=== PATIENT | male | born 1940 | race Caucasian/White ===

== ENCOUNTER 2023-10-09 12:12 | Emergency (ER) | payer MEDICARE, OTHER ==
[2023-10-09 13:28] LABS: BASO % 0.3 % (0.0-1.0); EOS # 0.2 10^3/uL (0.0-0.5); HEMATOCRIT 36.6 % (42.0-52.0); HEMOGLOBIN 11.6 g/dl (13.5-17.5); LYMPH # 1.1 10^3/uL (1.5-5.0); LYMPH % 9.4 % (24.0-44.0); MEAN CORPUSCULAR HEMOGLOBIN 27.6 pg (27.0-33.0); MEAN CORPUSCULAR HGB CONC 31.7 g/dl (32.0-36.5); MEAN CORPUSCULAR VOLUME 87.1 fl (80.0-96.0); MONO # 0.9 10^3/uL (0.0-0.8); MONO % 7.8 % (2.0-8.0); NEUTROPHILS # 9.4 10^3/uL (1.5-8.5); NEUTROPHILS % 79.8 % (36.0-66.0); PLATELET COUNT, AUTOMATED 417 10^3/uL (150-450); WHITE BLOOD COUNT 11.7 10^3/uL (4.0-10.0)
[2023-10-09 13:42] LABS: INR 1.09; PARTIAL THROMBOPLASTIN TIME 28.2 SECONDS (24.8-34.2); PROTHROMBIN TIME 13.7 SECONDS (12.5-14.5)
[2023-10-09 13:54] LABS: CK-MB VALUE MASS < 1.0 NG/ML (<3.6); LIPASE 46 U/L (12-53)
[2023-10-09 13:56] LABS: ALKALINE PHOSPHATASE 72 U/L (46-116); ALT/SGPT 33 U/L (7.0-40); AST/SGOT 19 U/L (<34); BILIRUBIN,DIRECT 0.1 MG/DL (<0.4); BILIRUBIN,TOTAL 0.3 MG/DL (0.3-1.2); BLOOD UREA NITROGEN 19 MG/DL (9-23); CALCIUM LEVEL 9.2 MG/DL (8.3-10.6); CARBON DIOXIDE LEVEL 21 MMOL/L (20-31); CHLORIDE LEVEL 112 MMOL/L (98-107); CPK CREATINE PHOSPHOKINASE 25 U/L (46-171); CREATININE FOR GFR 1.89 MG/DL (0.70-1.30); GLOMERULAR FILTRATION RATE 36.4 (>35); GLUCOSE, FASTING 112 MG/DL (74-106); POTASSIUM SERUM 4.6 MMOL/L (3.5-5.1); SODIUM LEVEL 141 MMOL/L (136-145); TOTAL PROTEIN 5.8 G/DL (5.7-8.2)
[2023-10-09 14:57] LABS: CK-MB VALUE MASS < 1.0 NG/ML (<3.6)
[2023-10-09 14:59] LABS: CPK CREATINE PHOSPHOKINASE 21 U/L (46-171); MB/CK RELATIVE INDEX 4.76 (< OR =4)
[2023-10-09] MEDS: NS 1,000 ML IV ONE (15:35)
[2023-10-09] MEDS ORDERED: UNRESOLVED CLARIFICATION ENTRY XX STA (15:42)
[2023-10-09 16:13] VITALS: BP 169/95; TEMP 99.2; O2SAT 97
== END 2023-10-09 16:25 | disposition home or self-care (01) ==
LOC: M ED 12:12
DX: K63.9 Disease of intestine, unspecified (principal); N17.9 Acute kidney failure, unspecified; I10 Essential (primary) hypertension; E78.5 Hyperlipidemia, unspecified

== ENCOUNTER 2024-01-25 17:22 | Inpatient (IN) | payer OTHER ==
[~2024-01-25] VITALS: Ht 172.7 cm; Wt 74.6 kg
[2024-01-25] MEDS: ACETAMINOPHEN 325 MG TAB PO ONE (18:23)
[2024-01-25] MEDS: NS 1,000 ML IV ONE ×2 (18:24→21:33)
[2024-01-25 18:30] LABS: HEMATOCRIT 31.2 % (42.0-52.0); HEMOGLOBIN 10.2 g/dl (13.5-17.5); MEAN CORPUSCULAR HEMOGLOBIN 27.3 pg (27.0-33.0); MEAN CORPUSCULAR HGB CONC 32.7 g/dl (32.0-36.5); MEAN CORPUSCULAR VOLUME 83.4 fl (80.0-96.0); PLATELET COUNT, AUTOMATED 242 10^3/uL (150-450); RED BLOOD COUNT 3.74 10^6/uL (4.30-6.10)
[2024-01-25 18:45] LABS: INR 1.26; PROTHROMBIN TIME 15.4 SECONDS (12.5-14.5)
[2024-01-25 18:49] LABS: APPEARANCE, URINE CLOUDY (CLEAR); BACTERIA, URINE AUTO 1+ (NEGATIVE); BILIRUBIN, URINE AUTO NEGATIVE (NEGATIVE); BLOOD, URINE BLOOD 2+ (NEGATIVE); COLOR, URINE AMBER (YELLOW); GLUCOSE, URINE (UA) AUTO NEGATIVE (NEGATIVE); KETONE, URINE AUTO NEGATIVE (NEGATIVE); LEUKOCYTE ESTERASE, URINE AUTO 3+ (NEGATIVE); MUCUS, URINE SMALL (NEGATIVE); NITRITE, URINE AUTO NEGATIVE (NEGATIVE); PROTEIN, URINE AUTO 3+ mg/dL (NEGATIVE); RBC, URINE AUTO 26 /HPF (0-3); SPECIFIC GRAVITY URINE AUTO 1.015 (1.002-1.035); SQUAMOUS EPITHELIAL CELL UR AU 1 /HPF (0-6); UROBILINOGEN, URINE AUTO 0.2 mg/dL (0.0-2.0); WBC, URINE AUTO TNTC /HPF (0-3)
[2024-01-25 18:59] LABS: AMYLASE 73 U/L (30-118)
[2024-01-25 19:12] LABS: LYMPHOCYTES 1 % (16-44); MONOCYTES 5 % (0-5); NEUTROPHILS 88 % (28-66)
[2024-01-25 19:13] LABS: BURR CELLS 1+; OVALOCYTES 1+; PLATELET ESTIMATE NORMAL (NORMAL); POIKILOCYTOSIS 1+
[2024-01-25] MEDS: cefTRIAXone SOD 2 GM in D5W MINI-BAG PLUS 50 ML IV ONE (19:13)
[2024-01-25 19:14] LABS: ANISOCYTOSIS 1+; MICROCYTOSIS 1+
[2024-01-25 19:36] LABS: ALBUMIN 3.2 G/DL (3.2-5.2); ALKALINE PHOSPHATASE 97 U/L (46-116); ALT/SGPT 11 U/L (7.0-40); AST/SGOT 13 U/L (<34); BILIRUBIN,DIRECT 0.2 MG/DL (<0.4); BILIRUBIN,TOTAL 0.5 MG/DL (0.3-1.2); BLOOD UREA NITROGEN 56 MG/DL (9-23); C REACTIVE PROTEIN QUANTITATIV > 30.40 MG/DL (<1.0); CALCIUM LEVEL 8.1 MG/DL (8.3-10.6); CARBON DIOXIDE LEVEL 20 MMOL/L (20-31); CHLORIDE LEVEL 106 MMOL/L (98-107); CREATININE FOR GFR 4.82 MG/DL (0.70-1.30); GLOMERULAR FILTRATION RATE 12.4 (>35); GLUCOSE, FASTING 105 MG/DL (74-106); POTASSIUM SERUM 4.4 MMOL/L (3.5-5.1); SODIUM LEVEL 136 MMOL/L (136-145); TOTAL PROTEIN 6.4 G/DL (5.7-8.2)
[2024-01-25 19:47] LABS: PROCALCITONIN >50.00 ng/ml
[2024-01-25] MEDS: NS 1,000 ML IV SCH ×2 (20:29→22:24)
[2024-01-25] MEDS ORDERED: TAMS1CAP17 PO (20:38)
[2024-01-25] MEDS ORDERED: LOSA25TA13 PO (20:38)
[2024-01-25] MEDS ORDERED: FINA5TAB2 PO (20:38)
[2024-01-25] MEDS ORDERED: MIRT1TAB PO (20:38)
[2024-01-25] MEDS ORDERED: THERTAB52 PO (20:38)
[2024-01-25] MEDS ORDERED: NIFE1TAB52 PO (20:38)
[2024-01-25] MEDS ORDERED: HOME MED LIST COMPLETE! XX SCH (20:40)
[2024-01-25] MEDS: TAMSULOSIN 0.4 MG CAP PO SCH (21:47)
[2024-01-25] MEDS: FINASTERIDE 5MG TAB PO SCH (21:47)
[2024-01-25] MEDS: PIPERACILLIN/TAZOBACTAM SOD 3.375 GM in D5W MINI-BAG PLUS 50 ML IV ONE (21:47)
[2024-01-25] MEDS: MIRTAZAPINE 7.5MG PER 1/2 TABLET PO SCH (21:48)
[2024-01-26] MEDS ORDERED: HEPARIN SOD (PORCINE) 5000UNITS/ML 1ML VIAL/SYRINGE SC SCH (06:00)
[2024-01-26] MEDS: PIPERACILLIN/TAZOBACTAM SOD 3.375 GM in D5W MINI-BAG PLUS 50 ML IV SCH (06:16)
[2024-01-26 06:38] LABS: HEMATOCRIT 25.9 % (42.0-52.0); HEMOGLOBIN 8.5 g/dl (13.5-17.5); MEAN CORPUSCULAR HEMOGLOBIN 27.3 pg (27.0-33.0); MEAN CORPUSCULAR HGB CONC 32.8 g/dl (32.0-36.5); MEAN CORPUSCULAR VOLUME 83.3 fl (80.0-96.0); PLATELET COUNT, AUTOMATED 184 10^3/uL (150-450); RED BLOOD COUNT 3.11 10^6/uL (4.30-6.10)
[2024-01-26 07:25] LABS: ALBUMIN 2.5 G/DL (3.2-5.2); ALKALINE PHOSPHATASE 78 U/L (46-116); ALT/SGPT < 9 U/L (7.0-40); AST/SGOT 9 U/L (<34); BILIRUBIN,TOTAL 0.3 MG/DL (0.3-1.2); BLOOD UREA NITROGEN 58 MG/DL (9-23); CALCIUM LEVEL 7.3 MG/DL (8.3-10.6); CARBON DIOXIDE LEVEL 16 MMOL/L (20-31); CHLORIDE LEVEL 111 MMOL/L (98-107); CREATININE FOR GFR 4.45 MG/DL (0.70-1.30); GLOMERULAR FILTRATION RATE 13.6 (>35); GLUCOSE, FASTING 109 MG/DL (74-106); MAGNESIUM LEVEL 1.8 MG/DL (1.8-2.4); SODIUM LEVEL 138 MMOL/L (136-145); TOTAL PROTEIN 5.2 G/DL (5.7-8.2)
[2024-01-26 09:34] LABS: VENOUS BASE EXCESS -8.3 (-2.0-2.0); VENOUS HCO3 15.9 MMOL/L (23.0-27.0); VENOUS O2 SATURATION 97.8 % (60.0-80.0); VENOUS PARTIAL PRESSURE CO2 28.3 mmHg (38.0-50.0); VENOUS PH 7.368 UNITS (7.330-7.430); VENOUS STANDARD HCO3 17.7 MMOL/L; VENOUS TOTAL CO2 16.8 MMOL/L (24.0-28.0)
[2024-01-26] MEDS: SODIUM BICARBONATE 8.4% INJ 50ML SYRINGE IV STA (10:29)
[2024-01-26] MEDS ORDERED: GLUCOSE 4 GM CHEW PO PRN (11:10)
[2024-01-26] MEDS ORDERED: DEXTROSE 50% 50ML SYRINGE IV PRN (11:10)
[2024-01-26] MEDS ORDERED: GLUCAGON INJ 1MG VIAL SC PRN (11:10)
[2024-01-26] MEDS: INSULIN LISPRO (NovoLOG) PER UNIT SC SCH (11:42)
[2024-01-26] MEDS: ACETAMINOPHEN TAB 650MG DOSE (2X325MG) PO PRN (13:25)
[2024-01-26 13:39] LABS: CALCIUM LEVEL 7.9 MG/DL (8.3-10.6); CREATININE FOR GFR 4.3 MG/DL (0.70-1.30); GLOMERULAR FILTRATION RATE 14.1 (>35); POTASSIUM SERUM 4.5 MMOL/L (3.5-5.1)
[2024-01-26] MEDS: PIPERACILLIN/TAZOBACTAM SOD 4.5 GM in D5W MINI-BAG PLUS 50 ML IV SCH (14:18)
[2024-01-26 15:08] VITALS: BP 124/70; TEMP 100.1; O2SAT 95
[2024-01-26 20:08] VITALS: BP 150/77; TEMP 99; O2SAT 96
[2024-01-26] MEDS: HEPARIN SOD (PORCINE) 5000UNITS/ML 1ML VIAL/SYRINGE SQ SCH (20:18)
[2024-01-27] VITALS (11 sets, daily range): BP systolic 95–176; BP diastolic 58–90; TEMP 97.8–102.8; O2SAT 93–97
[2024-01-27 07:38] LABS: BASO % 0.2 % (0.0-1.0); EOS # 0.1 10^3/uL (0.0-0.5); EOS % 0.7 % (0.0-3.0); HEMATOCRIT 25.8 % (42.0-52.0); HEMOGLOBIN 8.1 g/dl (13.5-17.5); LYMPH # 0.6 10^3/uL (1.5-5.0); LYMPH % 4.1 % (24.0-44.0); MEAN CORPUSCULAR HEMOGLOBIN 26.6 pg (27.0-33.0); MEAN CORPUSCULAR HGB CONC 31.4 g/dl (32.0-36.5); MEAN CORPUSCULAR VOLUME 84.6 fl (80.0-96.0); MONO # 0.7 10^3/uL (0.0-0.8); MONO % 4.6 % (2.0-8.0); NEUTROPHILS # 13.8 10^3/uL (1.5-8.5); NEUTROPHILS % 89.8 % (36.0-66.0); PLATELET COUNT, AUTOMATED 165 10^3/uL (150-450); RED BLOOD COUNT 3.05 10^6/uL (4.30-6.10); WHITE BLOOD COUNT 15.4 10^3/uL (4.0-10.0)
[2024-01-27 08:12] LABS: ALBUMIN 2.2 G/DL (3.2-5.2); BLOOD UREA NITROGEN 58 MG/DL (9-23); CALCIUM LEVEL 7.9 MG/DL (8.3-10.6); CARBON DIOXIDE LEVEL 20 MMOL/L (20-31); CHLORIDE LEVEL 118 MMOL/L (98-107); CREATININE FOR GFR 4.19 MG/DL (0.70-1.30); GLOMERULAR FILTRATION RATE 14.5 (>35); GLUCOSE, FASTING 101 MG/DL (74-106); PHOSPHORUS LEVEL 3.9 MG/DL (2.4-5.1); POTASSIUM SERUM 4.7 MMOL/L (3.5-5.1); SODIUM LEVEL 145 MMOL/L (136-145)
[2024-01-27 12:35] LABS: HEMATOCRIT 27.2 % (42.0-52.0); HEMOGLOBIN 8.6 g/dl (13.5-17.5)
[2024-01-27 13:12] LABS: PROCALCITONIN >50.00 ng/ml
[2024-01-28] VITALS (7 sets, daily range): BP systolic 139–176; BP diastolic 72–104; TEMP 99.2–101.8; O2SAT 95–97
[2024-01-28 07:22] LABS: BASO % 0.2 % (0.0-1.0); EOS # 0.4 10^3/uL (0.0-0.5); EOS % 3.6 % (0.0-3.0); HEMATOCRIT 25.4 % (42.0-52.0); HEMOGLOBIN 7.9 g/dl (13.5-17.5); LYMPH # 0.8 10^3/uL (1.5-5.0); LYMPH % 7.9 % (24.0-44.0); MEAN CORPUSCULAR HEMOGLOBIN 26.6 pg (27.0-33.0); MEAN CORPUSCULAR HGB CONC 31.1 g/dl (32.0-36.5); MEAN CORPUSCULAR VOLUME 85.5 fl (80.0-96.0); MONO % 10.1 % (2.0-8.0); NEUTROPHILS # 7.7 10^3/uL (1.5-8.5); NEUTROPHILS % 77.6 % (36.0-66.0); PLATELET COUNT, AUTOMATED 183 10^3/uL (150-450); RED BLOOD COUNT 2.97 10^6/uL (4.30-6.10); WHITE BLOOD COUNT 9.9 10^3/uL (4.0-10.0)
[2024-01-28 07:49] LABS: ALBUMIN 2.1 G/DL (3.2-5.2); CREATININE FOR GFR 3.87 MG/DL (0.70-1.30); GLOMERULAR FILTRATION RATE 15.9 (>35); PHOSPHORUS LEVEL 3.4 MG/DL (2.4-5.1); POTASSIUM SERUM 4.1 MMOL/L (3.5-5.1)
[2024-01-28 09:54] LABS: PERCENT SATURATION 3.8 % (19.7-50.0)
[2024-01-28] MEDS: SODIUM BICARBONATE 325 MG TAB PO SCH (11:02)
[2024-01-28 12:50] LABS: BASO % 0.3 % (0.0-1.0); EOS # 0.3 10^3/uL (0.0-0.5); EOS % 2.8 % (0.0-3.0); HEMATOCRIT 29.4 % (42.0-52.0); HEMOGLOBIN 9.1 g/dl (13.5-17.5); LYMPH # 0.7 10^3/uL (1.5-5.0); LYMPH % 6.9 % (24.0-44.0); MEAN CORPUSCULAR HEMOGLOBIN 26.3 pg (27.0-33.0); MONO # 0.7 10^3/uL (0.0-0.8); MONO % 7.3 % (2.0-8.0); NEUTROPHILS # 8.3 10^3/uL (1.5-8.5); NEUTROPHILS % 82.2 % (36.0-66.0); PLATELET COUNT, AUTOMATED 214 10^3/uL (150-450); RED BLOOD COUNT 3.46 10^6/uL (4.30-6.10); WHITE BLOOD COUNT 10.1 10^3/uL (4.0-10.0)
[2024-01-28] MEDS: NIFEdipine 30MG XL TAB PO SCH (17:52)
[2024-01-28] MEDS: ACETAMINOPHEN *IV* 1,000 MG in IV 1 EA IV ONE (17:53)
[2024-01-28] MEDS: FERROUS SULFATE 325MG TAB PO SCH (20:48)
[2024-01-29] VITALS (7 sets, daily range): BP systolic 126–144; BP diastolic 74–88; TEMP 96.7–100.5; O2SAT 92–94
[2024-01-29 06:32] LABS: BASO % 0.4 % (0.0-1.0); EOS # 0.3 10^3/uL (0.0-0.5); EOS % 3.4 % (0.0-3.0); HEMATOCRIT 24.9 % (42.0-52.0); HEMOGLOBIN 7.8 g/dl (13.5-17.5); LYMPH # 0.7 10^3/uL (1.5-5.0); LYMPH % 8.8 % (24.0-44.0); MEAN CORPUSCULAR HEMOGLOBIN 26.3 pg (27.0-33.0); MEAN CORPUSCULAR HGB CONC 31.3 g/dl (32.0-36.5); MEAN CORPUSCULAR VOLUME 83.8 fl (80.0-96.0); MONO # 0.9 10^3/uL (0.0-0.8); MONO % 10.6 % (2.0-8.0); NEUTROPHILS # 6.4 10^3/uL (1.5-8.5); NEUTROPHILS % 76.1 % (36.0-66.0); PLATELET COUNT, AUTOMATED 205 10^3/uL (150-450); RED BLOOD COUNT 2.97 10^6/uL (4.30-6.10); WHITE BLOOD COUNT 8.3 10^3/uL (4.0-10.0)
[2024-01-29 06:55] LABS: ALBUMIN 2.1 G/DL (3.2-5.2); CALCIUM LEVEL 7.9 MG/DL (8.3-10.6); CREATININE FOR GFR 3.53 MG/DL (0.70-1.30); GLOMERULAR FILTRATION RATE 17.7 (>35); PHOSPHORUS LEVEL 2.8 MG/DL (2.4-5.1); POTASSIUM SERUM 3.9 MMOL/L (3.5-5.1)
[2024-01-29 10:57] LABS: C REACTIVE PROTEIN QUANTITATIV 12.4 MG/DL (<1.0)
[2024-01-29 11:11] LABS: PROCALCITONIN 25.3 ng/ml
[2024-01-29 12:16] LABS: BASO % 0.2 % (0.0-1.0); EOS # 0.2 10^3/uL (0.0-0.5); HEMATOCRIT 26.2 % (42.0-52.0); HEMOGLOBIN 8.2 g/dl (13.5-17.5); LYMPH # 0.8 10^3/uL (1.5-5.0); LYMPH % 8.2 % (24.0-44.0); MEAN CORPUSCULAR HGB CONC 31.3 g/dl (32.0-36.5); MEAN CORPUSCULAR VOLUME 83.2 fl (80.0-96.0); MONO # 0.9 10^3/uL (0.0-0.8); NEUTROPHILS # 7.2 10^3/uL (1.5-8.5); NEUTROPHILS % 78.7 % (36.0-66.0); PLATELET COUNT, AUTOMATED 226 10^3/uL (150-450); RED BLOOD COUNT 3.15 10^6/uL (4.30-6.10); WHITE BLOOD COUNT 9.2 10^3/uL (4.0-10.0)
[2024-01-29] MEDS: LACTOBACILLUS ACIDOPHILUS CAP (BACID) PO SCH (12:53)
[2024-01-29] MEDS: CALAMINE LOTION 177 ML BTL TOP SCH (12:54)
[2024-01-30 04:08] VITALS: BP 122/73; TEMP 98.7; O2SAT 93
[2024-01-30 06:45] LABS: BASO % 0.2 % (0.0-1.0); EOS # 0.4 10^3/uL (0.0-0.5); EOS % 3.6 % (0.0-3.0); HEMATOCRIT 24.3 % (42.0-52.0); HEMOGLOBIN 7.6 g/dl (13.5-17.5); LYMPH # 0.9 10^3/uL (1.5-5.0); LYMPH % 9.5 % (24.0-44.0); MEAN CORPUSCULAR HEMOGLOBIN 26.4 pg (27.0-33.0); MEAN CORPUSCULAR HGB CONC 31.3 g/dl (32.0-36.5); MEAN CORPUSCULAR VOLUME 84.4 fl (80.0-96.0); MONO # 1.1 10^3/uL (0.0-0.8); MONO % 10.9 % (2.0-8.0); NEUTROPHILS # 7.4 10^3/uL (1.5-8.5); NEUTROPHILS % 74.9 % (36.0-66.0); PLATELET COUNT, AUTOMATED 255 10^3/uL (150-450); RED BLOOD COUNT 2.88 10^6/uL (4.30-6.10); WHITE BLOOD COUNT 9.9 10^3/uL (4.0-10.0)
[2024-01-30 07:12] LABS: ALBUMIN 2.1 G/DL (3.2-5.2); CALCIUM LEVEL 7.6 MG/DL (8.3-10.6); CREATININE FOR GFR 3.34 MG/DL (0.70-1.30); GLOMERULAR FILTRATION RATE 18.9 (>35); PHOSPHORUS LEVEL 2.8 MG/DL (2.4-5.1); POTASSIUM SERUM 4.1 MMOL/L (3.5-5.1)
[2024-01-30 07:23] VITALS: BP 145/85; TEMP 99.9; O2SAT 92
[2024-01-30 09:02] VITALS: BP 125/67
[2024-01-30] MEDS ORDERED: LevoFLOXacin 750 MG TABLET PO ONE (09:45)
[2024-01-30 09:58] LABS: HEMATOCRIT 24.9 % (42.0-52.0); HEMOGLOBIN 7.8 g/dl (13.5-17.5)
[2024-01-30] MEDS ORDERED: RISATAB3 PO (10:55)
[2024-01-30] MEDS ORDERED: FERR1TAB8 PO (10:55)
[2024-01-30] MEDS ORDERED: SODI325T9 PO (10:55)
[2024-01-30] MEDS ORDERED: LEVO1TAB39 PO (10:55)
[2024-01-30] MEDS: LevoFLOXacin 500 MG TABLET PO SCH (11:11)
[2024-01-31] MEDS ORDERED: LevoFLOXacin 500 MG TABLET PO SCH (09:00)
== END 2024-01-30 12:24 | disposition home or self-care (01) | DRG 698 ==
LOC: M ED 17:22 → M ED INP 21:20 → M PCU 01-26 14:56
PROVIDERS: ADMIT Preventive Medicine Undersea and Hyperbaric Medicine; ATTEND Preventive Medicine Undersea and Hyperbaric Medicine
DX: T83.511A Infection and inflammatory reaction due to indwelling urethral catheter, initial encounter (principal); A41.50 Gram-negative sepsis, unspecified; R65.20 Severe sepsis without septic shock; N13.30 Unspecified hydronephrosis; N17.9 Acute kidney failure, unspecified; E87.20 Acidosis, unspecified; K92.2 Gastrointestinal hemorrhage, unspecified; F03.90 Unspecified dementia, unspecified severity, without behavioral disturbance, psychotic disturbance, mood disturbance, and anxiety; N18.32 Chronic kidney disease, stage 3b; D64.9 Anemia, unspecified; N39.0 Urinary tract infection, site not specified; N21.0 Calculus in bladder; I49.5 Sick sinus syndrome; Z66 Do not resuscitate; N40.1 Benign prostatic hyperplasia with lower urinary tract symptoms; I12.9 Hypertensive chronic kidney disease with stage 1 through stage 4 chronic kidney disease, or unspecified chronic kidney disease; Z95.0 Presence of cardiac pacemaker; Z79.899 Other long term (current) drug therapy; D37.4 Neoplasm of uncertain behavior of colon

== ENCOUNTER → 2024-01-25 | Outpatient (REF) | payer OTHER ==
[~2024-01-25] MED LIST: FINA5TAB2 PO; LOSA25TA13 PO; MIRT1TAB PO; NIFE1TAB52 PO; TAMS1CAP17 PO; THERTAB52 PO
[2024-01-26 14:52] LABS: LYMPHOCYTES 3 % (16-44); MONOCYTES 2 % (0-5); NEUTROPHILS 74 % (28-66)
[2024-01-26 14:55] LABS: BURR CELLS 2+; PLATELET ESTIMATE NORMAL (NORMAL)
== END ==
LOC: M LAB REF 16:30
PROVIDERS: ATTEND Nurse Practitioner Family
DX: A41.9 Sepsis, unspecified organism (principal); D72.829 Elevated white blood cell count, unspecified

== ENCOUNTER → 2024-02-07 | Outpatient (REF) | payer OTHER ==
[~2024-02-07] MED LIST changes: +FERR1TAB8 PO; +LEVO1TAB39 PO; +RISATAB3 PO; +SODI325T9 PO
[2024-02-07 19:17] LABS: PERCENT SATURATION 4.8 % (19.7-50.0)
[2024-02-07 19:19] LABS: FERRITIN 74.2 NG/ML (10.5-307.3)
== END ==
LOC: M LAB REF 16:26
PROVIDERS: ATTEND Nurse Practitioner Family
DX: D64.9 Anemia, unspecified (principal)

== ENCOUNTER → 2024-02-17 | Outpatient (CLI) | payer OTHER | LOC: M WUC 14:22 | PROVIDERS: ATTEND Nurse Practitioner Family | DX: R06.02 Shortness of breath (principal) ==

== ENCOUNTER → 2024-05-23 | Outpatient (REF) | payer OTHER ==
[2024-05-23 17:35] LABS: PERCENT SATURATION 10.2 % (19.7-50.0)
[2024-05-23 17:39] LABS: FERRITIN 21.9 NG/ML (10.5-307.3)
== END ==
LOC: M LAB REF 16:20
PROVIDERS: ATTEND Nurse Practitioner Family
DX: D72.829 Elevated white blood cell count, unspecified (principal)

== ENCOUNTER → 2024-11-13 | Outpatient (REF) | payer MEDICARE, OTHER ==
[2024-11-13 19:05] LABS: IRON (FE) 21.0 UG/DL (65-175); PERCENT SATURATION 6.9 % (19.7-50.0)
== END ==
LOC: M LAB REF 17:21
PROVIDERS: ATTEND Physician Assistant Medical
DX: N39.0 Urinary tract infection, site not specified (principal); D50.9 Iron deficiency anemia, unspecified

== ENCOUNTER → 2024-11-23 | Outpatient (REF) | payer MEDICARE ==
[2024-11-23 17:53] LABS: APPEARANCE, URINE CLEAR (CLEAR); BACTERIA, URINE AUTO 1+ (NEGATIVE); BILIRUBIN, URINE AUTO NEGATIVE (NEGATIVE); BLOOD, URINE BLOOD 1+ (NEGATIVE); GLUCOSE, URINE (UA) AUTO NEGATIVE (NEGATIVE); KETONE, URINE AUTO NEGATIVE (NEGATIVE); LEUKOCYTE ESTERASE, URINE AUTO TRACE (NEGATIVE); MUCUS, URINE SMALL (NEGATIVE); NITRITE, URINE AUTO NEGATIVE (NEGATIVE); PROTEIN, URINE AUTO NEGATIVE (NEGATIVE); RBC, URINE AUTO 3 /HPF (0-3); SPECIFIC GRAVITY URINE AUTO 1.005 (1.002-1.035); SQUAMOUS EPITHELIAL CELL UR AU 0 /HPF (0-6); UROBILINOGEN, URINE AUTO 0.2 mg/dL (0.0-2.0); WBC, URINE AUTO 8 /HPF (0-3)
== END ==
LOC: M SFHCDERM 15:26
PROVIDERS: ATTEND Nurse Practitioner Family
DX: R33.9 Retention of urine, unspecified (principal)

== ENCOUNTER → 2024-11-23 | Outpatient (REF) | payer MEDICARE ==
[2024-11-23 18:40] LABS: IRON (FE) 34.0 UG/DL (65-175); PERCENT SATURATION 11.4 % (19.7-50.0)
== END ==
LOC: M LAB REF 17:34
PROVIDERS: ATTEND Nurse Practitioner Family
DX: D50.9 Iron deficiency anemia, unspecified (principal)

== ENCOUNTER → 2024-12-18 | Outpatient (REF) | payer MEDICARE | LOC: M LAB REF 17:10 | PROVIDERS: ATTEND Nurse Practitioner Adult Health | DX: N39.0 Urinary tract infection, site not specified (principal) ==

== ENCOUNTER 2024-12-21 14:53 | Inpatient (IN) | payer MEDICARE ==
[~2024-12-21] VITALS: Ht 171.4 cm; Wt 80.7 kg
[2024-12-21 17:35] LABS: BASO # 0.0 10^3/uL (0.0-0.2); BASO % 0.3 % (0.0-1.0); EOS # 0.2 10^3/uL (0.0-0.5); EOS % 1.7 % (0.0-3.0); LYMPH # 1.0 10^3/uL (1.5-5.0); LYMPH % 8.6 % (24.0-44.0); MONO # 1.2 10^3/uL (0.0-0.8); MONO % 11.0 % (2.0-8.0); NEUTROPHILS # 8.8 10^3/uL (1.5-8.5); NEUTROPHILS % 78.0 % (36.0-66.0); PLATELET COUNT, AUTOMATED 413 10^3/uL (150-450)
[2024-12-21 18:37] LABS: CALCIUM LEVEL 9.0 MG/DL (8.3-10.6); CARBON DIOXIDE LEVEL 19.0 MMOL/L (20-31); CHLORIDE LEVEL 109.0 MMOL/L (98-107); CREATININE FOR GFR 7.56 MG/DL (0.70-1.30); GLOMERULAR FILTRATION RATE 6.6 (>35); POTASSIUM SERUM 5.0 MMOL/L (3.5-5.1); SODIUM LEVEL 142.0 MMOL/L (136-145)
[2024-12-21] MEDS ORDERED: NS (Normal Saline) 0.9% 1,000 ML IV SCH (18:50)
[2024-12-21] MEDS: NS 500 ML IV ONE (19:10)
[2024-12-21 19:14] LABS: KETONE, URINE AUTO RFX NEGATIVE (NEGATIVE); MUCUS, URINE RFX SMALL (NEGATIVE); NITRITE, URINE AUTO RFX NEGATIVE (NEGATIVE); RBC, URINE AUTO RFX 38 /HPF (0-3); SQUAM EPITHELIAL CELL UR AURFX 0 /HPF (0-6)
[2024-12-21 19:18] LABS: LEUKOCYTE ESTERASE UR AUTO RFX 2+ (NEGATIVE); WBC, URINE AUTO RFX 80 /HPF (0-3)
[2024-12-21] MEDS ORDERED: LEVO1TAB39 PO (19:38)
[2024-12-21] MEDS ORDERED: HOME MED LIST COMPLETE! XX SCH (19:40)
[2024-12-21] MEDS ORDERED: LIDOCAINE 2% 100 MG/5 ML SDV (FOR ANES.) As Ordered ONE (20:41)
[2024-12-21] MEDS: ceFAZolin SOD 2 GM in DEXTROSE 5% (D5W) ADV/MINI-BAG 50 ML IV ONE (21:05)
[2024-12-21] MEDS ORDERED: LIDOCAINE 2% 5 ML JELLY UROJET As Ordered ONE (21:07)
[2024-12-21] MEDS ORDERED: ISOVUE-300 61% 100 ML VIAL As Ordered ONE (21:07)
[2024-12-21] MEDS ORDERED: ACETAMINOPHEN 1000MG/100ML IV BAG As Ordered ONE (21:47)
[2024-12-21] MEDS ORDERED: KETOROLAC 30 MG/ML 1 ML VIAL As Ordered ONE (21:47)
[2024-12-21] MEDS ORDERED: MORPHINE 2 MG/ML 1 ML VIAL IV PRN (22:05)
[2024-12-21] MEDS ORDERED: ONDANSETRON 4MG 2ML VIAL IV PRN (22:05)
[2024-12-21 22:47] VITALS: BP 168/94; TEMP 97.5; O2SAT 97
[2024-12-21] MEDS: NS (Normal Saline) 0.9% 1,000 ML IV SCH (23:29)
[2024-12-21 23:33] VITALS: BP 168/92; TEMP 97.9; O2SAT 96
[2024-12-22] VITALS (12 sets, daily range): BP systolic 114–178; BP diastolic 70–102; TEMP 97–100.7; O2SAT 90–99
[2024-12-22 05:53] LABS: PLATELET COUNT, AUTOMATED 296 10^3/uL (150-450)
[2024-12-22 06:03] LABS: ALT/SGPT < 9 U/L (7.0-40); AST/SGOT 9 U/L (<34); CALCIUM LEVEL 8.1 MG/DL (8.3-10.6); CARBON DIOXIDE LEVEL 19 MMOL/L (20-31); CHLORIDE LEVEL 110 MMOL/L (98-107); CREATININE FOR GFR 7.20 MG/DL (0.70-1.30); GLOMERULAR FILTRATION RATE 7.0 (>35); POTASSIUM SERUM 4.9 MMOL/L (3.5-5.1); SODIUM LEVEL 142 MMOL/L (136-145)
[2024-12-22] MEDS: amLODIPine 5 MG TAB PO SCH ×2 (08:47→20:47)
[2024-12-22] MEDS: cefTRIAXone SOD 1 GM in DEXTROSE 5% (D5W) ADV/MINI-BAG 50 ML IV SCH (10:37)
[2024-12-22 12:38] LABS: IRON (FE) 9 UG/DL (65-175); PERCENT SATURATION 4.0 % (19.7-50.0)
[2024-12-22] MEDS: SODIUM BICARBONATE 325 MG TAB PO SCH (13:47)
[2024-12-22] MEDS: ACETAMINOPHEN 325 MG TAB PO PRN (13:47)
[2024-12-22] MEDS: ACETAMINOPHEN *IV* 1,000 MG in IV 1 EA IV ONE (16:32)
[2024-12-22] MEDS: LevoFLOXacin IV 750 MG in IV 1 EA IV ONE (17:16)
[2024-12-22] MEDS: HEPARIN SOD 5000 UNITS/ML 1 ML VIAL/SYRINGE SQ SCH (20:46)
[2024-12-22] MEDS: MIRTAZAPINE 7.5 MG PER 1/2 TABLET PO SCH (20:46)
[2024-12-22] MEDS: FINASTERIDE 5 MG TAB PO SCH (20:47)
[2024-12-23 00:19] VITALS: BP 139/87; TEMP 100; O2SAT 98
[2024-12-23 04:16] VITALS: BP 147/88; TEMP 98.8; O2SAT 98
[2024-12-23 08:23] VITALS: BP 159/93; TEMP 97.8; O2SAT 98
[2024-12-23 08:30] LABS: BASO # 0.0 10^3/uL (0.0-0.2); BASO % 0.3 % (0.0-1.0); EOS # 0.0 10^3/uL (0.0-0.5); EOS % 0.6 % (0.0-3.0); LYMPH # 0.5 10^3/uL (1.5-5.0); LYMPH % 7.1 % (24.0-44.0); MONO # 0.6 10^3/uL (0.0-0.8); MONO % 9.9 % (2.0-8.0); NEUTROPHILS # 5.3 10^3/uL (1.5-8.5); NEUTROPHILS % 81.8 % (36.0-66.0); PLATELET COUNT, AUTOMATED 343 10^3/uL (150-450)
[2024-12-23 09:03] LABS: ALT/SGPT < 9 U/L (7.0-40); AST/SGOT 15 U/L (<34); CALCIUM LEVEL 8.2 MG/DL (8.3-10.6); CARBON DIOXIDE LEVEL 17 MMOL/L (20-31); CHLORIDE LEVEL 110 MMOL/L (98-107); CREATININE FOR GFR 6.04 MG/DL (0.70-1.30); GLOMERULAR FILTRATION RATE 8.6 (>35); POTASSIUM SERUM 4.8 MMOL/L (3.5-5.1); SODIUM LEVEL 142 MMOL/L (136-145)
[2024-12-23 12:18] VITALS: BP 151/87; TEMP 97.3; O2SAT 99
[2024-12-23] MEDS: SODIUM BICARBONATE 325 MG TAB PO SCH (13:05)
[2024-12-23 16:12] VITALS: BP 137/73; TEMP 97.5; O2SAT 99
[2024-12-23 20:00] VITALS: BP 168/82; TEMP 97.8; O2SAT 97
[2024-12-24] VITALS (10 sets, daily range): BP systolic 134–153; BP diastolic 73–90; TEMP 97.2–99.1; O2SAT 93–98
[2024-12-24 05:47] LABS: BASO # 0.0 10^3/uL (0.0-0.2); BASO % 0.2 % (0.0-1.0); EOS # 0.2 10^3/uL (0.0-0.5); EOS % 1.9 % (0.0-3.0); LYMPH # 0.8 10^3/uL (1.5-5.0); LYMPH % 9.5 % (24.0-44.0); MONO # 0.9 10^3/uL (0.0-0.8); MONO % 10.8 % (2.0-8.0); NEUTROPHILS # 6.5 10^3/uL (1.5-8.5); NEUTROPHILS % 77.0 % (36.0-66.0); PLATELET COUNT, AUTOMATED 377 10^3/uL (150-450)
[2024-12-24 06:08] LABS: CALCIUM LEVEL 8.0 MG/DL (8.3-10.6); CARBON DIOXIDE LEVEL 17.0 MMOL/L (20-31); CHLORIDE LEVEL 111.0 MMOL/L (98-107); CREATININE FOR GFR 5.05 MG/DL (0.70-1.30); GLOMERULAR FILTRATION RATE 10.6 (>35); POTASSIUM SERUM 4.6 MMOL/L (3.5-5.1); SODIUM LEVEL 144.0 MMOL/L (136-145)
[2024-12-24] MEDS: MIRALAX *UNIT DOSE* 17 GM PACKET PO SCH (08:26)
[2024-12-24] MEDS: SENNA 8.6 MG TAB PO PRN (08:26)
[2024-12-24] MEDS: FERRIC CARBOXYMALTOSE INJ 750 MG, VIAL MATE ADAPTER 1 EACH in NS 100 ML IV ONE (11:14)
[2024-12-24] MEDS: SODIUM BICARBONATE 100 MEQ in D5W 1,000 ML IV SCH (13:30)
[2024-12-24] MEDS: LevoFLOXacin IV 500 MG in IV 1 EA IV SCH (17:43)
[2024-12-25 03:09] VITALS: BP 115/72; TEMP 97.8; O2SAT 97
[2024-12-25 05:42] LABS: BASO # 0.0 10^3/uL (0.0-0.2); BASO % 0.1 % (0.0-1.0); EOS # 0.2 10^3/uL (0.0-0.5); EOS % 2.5 % (0.0-3.0); LYMPH # 1.0 10^3/uL (1.5-5.0); LYMPH % 11.4 % (24.0-44.0); MONO # 1.0 10^3/uL (0.0-0.8); MONO % 11.3 % (2.0-8.0); NEUTROPHILS # 6.5 10^3/uL (1.5-8.5); NEUTROPHILS % 74.1 % (36.0-66.0); PLATELET COUNT, AUTOMATED 336 10^3/uL (150-450)
[2024-12-25 06:10] LABS: CALCIUM LEVEL 7.2 MG/DL (8.3-10.6); CARBON DIOXIDE LEVEL 22.0 MMOL/L (20-31); CHLORIDE LEVEL 109.0 MMOL/L (98-107); CREATININE FOR GFR 4.2 MG/DL (0.70-1.30); GLOMERULAR FILTRATION RATE 13.3 (>35); POTASSIUM SERUM 4.1 MMOL/L (3.5-5.1); SODIUM LEVEL 144.0 MMOL/L (136-145)
[2024-12-25 07:45] VITALS: BP 135/77; TEMP 98.3; O2SAT 93
[2024-12-25 08:58] VITALS: BP 135/77
[2024-12-25] MEDS: SODIUM BICARBONATE 325 MG TAB PO SCH (09:41)
[2024-12-25] MEDS ORDERED: LEVO1TAB40 PO (10:11)
[2024-12-25] MEDS ORDERED: SODI325T9 PO (10:11)
[2024-12-25 15:31] VITALS: BP 123/72; TEMP 98.3; O2SAT 93
== END 2024-12-25 15:58 | disposition home or self-care (01) | DRG 660 ==
LOC: M ED 14:53 → M ED INP 14:54 → M PCU 22:43 → OBSVTOIN 12-22 08:30
PROVIDERS: ADMIT Internal Medicine; ATTEND Internal Medicine
PROC: 0T778DZ Dilation of Left Ureter with Intraluminal Device, Via Natural or Artificial Opening Endoscopic (ICD-10-PCS; principal; 2024-12-21 18:37)
DX: N13.2 Hydronephrosis with renal and ureteral calculous obstruction (principal); E87.20 Acidosis, unspecified; I12.9 Hypertensive chronic kidney disease with stage 1 through stage 4 chronic kidney disease, or unspecified chronic kidney disease; N18.4 Chronic kidney disease, stage 4 (severe); N17.9 Acute kidney failure, unspecified; N40.1 Benign prostatic hyperplasia with lower urinary tract symptoms; F03.90 Unspecified dementia, unspecified severity, without behavioral disturbance, psychotic disturbance, mood disturbance, and anxiety; D63.8 Anemia in other chronic diseases classified elsewhere; I49.5 Sick sinus syndrome; Z95.0 Presence of cardiac pacemaker; Z87.891 Personal history of nicotine dependence; Z79.899 Other long term (current) drug therapy

== ENCOUNTER → 2025-01-31 | Outpatient (CLI) | payer MEDICARE ==
[~2025-01-31] MED LIST changes: +LEVO1TAB40 PO
[2025-01-31 19:13] LABS: PLATELET COUNT, AUTOMATED 499 10^3/uL (150-450)
[2025-01-31 19:37] LABS: ALT/SGPT < 9 U/L (7.0-40); CALCIUM LEVEL 9.3 MG/DL (8.3-10.6); CARBON DIOXIDE LEVEL 20 MMOL/L (20-31); CHLORIDE LEVEL 110 MMOL/L (98-107); CREATININE FOR GFR 3.92 MG/DL (0.70-1.30); GLOMERULAR FILTRATION RATE 14.4 (>35); POTASSIUM SERUM 5.2 MMOL/L (3.5-5.1); SODIUM LEVEL 142 MMOL/L (136-145)
[2025-01-31 19:43] LABS: INR 1.06
[2025-02-02 07:01] LABS: AST/SGOT 12 U/L (<34)
== END ==
LOC: M RAD 16:26
PROVIDERS: ATTEND Urology
DX: Z01.818 Encounter for other preprocedural examination (principal); N20.0 Calculus of kidney

== ENCOUNTER → 2025-02-07 | Outpatient (REF) | payer MEDICARE | LOC: M SMT 15:01 | PROVIDERS: ATTEND Urology | DX: N20.0 Calculus of kidney (principal) ==

== ENCOUNTER 2025-02-15 08:26 | Day surgery (SDC) | payer MEDICARE ==
[~2025-02-15] VITALS: Ht 180.3 cm; Wt 78.5 kg
[~2025-02-15 08:26] MED LIST changes: +KETOROLAC 30 MG/ML 1 ML VIAL As Ordered ONE; +LIDOCAINE 2% 100 MG/5 ML SDV (FOR ANES.) As Ordered ONE; +ONDANSETRON 4MG/2ML VIAL As Ordered ONE; +dexAMETHasone 4 MG/ML 1 ML VIAL As Ordered ONE
[2025-02-15] MEDS: LR 1,000 ML IV SCH (08:45)
[2025-02-15] MEDS: NS (Normal Saline) 0.9% 1,000 ML IV SCH (09:40)
[2025-02-15] MEDS: ceFAZolin SOD 2 GM IV ONCE IV ONE (10:30)
[2025-02-15] MEDS: ISOVUE-300 61% 100 ML VIAL As Ordered ONE (10:37)
[2025-02-15] MEDS ORDERED: ONDANSETRON 4MG/2ML VIAL IV PRN (11:30)
[2025-02-15] MEDS ORDERED: HYDROMORPHONE HCL 0.5 MG/0.5 ML SYRINGE IV PRN (11:30)
[2025-02-15] MEDS ORDERED: LR 1,000 ML IV SCH (11:30)
[2025-02-15] MEDS ORDERED: PYRI1TAB5 PO (11:39)
[2025-02-15] MEDS ORDERED: LEVO1TAB39 PO (11:39)
[2025-02-15] MEDS ORDERED: OXYB5TAB14 PO (11:39)
[2025-02-15 12:35] VITALS: BP 161/86; TEMP 97.8; O2SAT 97
== END 2025-02-15 13:06 | disposition home or self-care (01) ==
LOC: M SDC 08:26
PROVIDERS: ATTEND Urology
DX: N20.0 Calculus of kidney (principal); Z95.0 Presence of cardiac pacemaker; Z79.899 Other long term (current) drug therapy
CPT/HCPCS: 52356; 74420; 82365; C1769; C1894; C2617; J0688; J1100; J1885; J2405; J3010; Q9967